=== PATIENT | female | born 1990 | race Caucasian/White ===

== ENCOUNTER 2017-09-19 20:28 | Inpatient (IN) | payer MEDICAID ==
[~2017-09-19] VITALS: Ht 165.1 cm; Wt 110.2 kg
[2017-09-20 00:50] VITALS: BP 107/60
[2017-09-20 08:00] VITALS: BP 103/69
[2017-09-20] MEDS ORDERED: PETROLATUM,WHITE 71 GM JELLY TP PRN (08:00)
[2017-09-20] MEDS ORDERED: MAGNESIUM HYDROXIDE SUSPENSION 30 ML UDCUP PO PRN (08:00)
[2017-09-20] MEDS ORDERED: MAG HYDROX/AL HYDROX/SIMETH ES 30 ML SUSPENSION UDCUP PO PRN (08:00)
[2017-09-20] MEDS ORDERED: DOCUSATE SODIUM 100 MG CAPSULE PO PRN (08:00)
[2017-09-20] MEDS ORDERED: ALBUTEROL SULFATE HFA 90 MCG/PUFF 8 GM INHALER IH PRN (08:00)
[2017-09-20 08:08] LABS: BASOPHILS % (AUTO) 0.5 % (0.0-2.0); EOSINOPHILS % (AUTO) 4.1 % (1.0-6.0); HEMATOCRIT 30.6 % (36-46); HEMOGLOBIN 10.4 g/dL (12.0-16.0); LYMPHOCYTES # (AUTO) 1.6 K/uL (1.0-4.8); LYMPHOCYTES % (AUTO) 25.3 % (22.0-44.0); MEAN CORPUSCULAR HEMOGLOBIN 30.1 pg (26.0-34.0); MEAN CORPUSCULAR VOLUME 89 fL (80-100); MONOCYTES # (AUTO) 0.6 K/uL (0.1-1.0); MONOCYTES % (AUTO) 9.6 % (2.0-9.0); NEUTROPHILS # (AUTO) 3.9 K/uL (1.8-7.7); NEUTROPHILS % (AUTO) 60.5 % (40.0-70.0); PLATELET COUNT (AUTO) 210 K/uL (150-450); RED BLOOD CELL COUNT(AUTO) 3.45 MIL/uL (4.00-5.20); RED CELL DISTRIBUTION WIDTH 13.9 % (11.5-14.5)
[2017-09-20 08:20] LABS: HEMOGLOBIN A1C 4.8 % (4.5-6.2)
[2017-09-20 08:48] LABS: ALANINE AMINOTRANSFERASE 9 U/L (12-78); ALBUMIN 2.1 g/dL (3.4-5.0); ALKALINE PHOSPHATASE 71 U/L (46-116); ANION GAP 10 mmol/L (8-16); ASPARTATE AMINOTRANSFERASE 8 U/L (15-37); BILIRUBIN,TOTAL 0.1 mg/dL (0.1-1.0); CALCIUM, TOTAL 7.9 mg/dL (8.8-10.5); CARBON DIOXIDE 23 mmol/L (22-29); CHLORIDE 105 mmol/L (98-107); CHOL/HDL RATIO 2.8 (3.9-5.7); CHOLESTEROL 190 mg/dL (131-200); CREATININE 0.38 mg/dL (0.60-1.30); FREE T4 (FREE THYROXINE) 0.83 ng/dL (0.76-1.46); GLOMERULAR FILTR. RATE CALC > 60 mL/min (>60); GLUCOSE,RANDOM 84 mg/dL (70-110); HDL CHOLESTEROL 68 mg/dL (40-60); LDL CHOL (CALC.) 97 mg/dL (0-130); POTASSIUM 3.9 mmol/L (3.5-5.1); SODIUM SERUM 138 mmol/L (136-145); THYROID STIMULATING HORMONE 2.25 uIU/mL (0.36-3.74); TRIGLYCERIDES 125 mg/dL (15-150); UREA NITROGEN, BLOOD 7 mg/dL (7-18)
[2017-09-20 08:49] LABS: HCG,QUANTITATIVE 4392 mIU/mL (0-6)
[2017-09-20 09:22] VITALS: BP 103/69
[2017-09-20] MEDS: NICOTINE 14 MG/24 HOUR PATCH TD SCH (13:08)
[2017-09-20 16:19] VITALS: BP 102/64
[2017-09-20] MEDS: FERROUS SULFATE 325 MG EC TABLET PO SCH (17:09)
[2017-09-21 05:44] VITALS: BP 105/56
[2017-09-21] MEDS: FERROUS SULFATE 325 MG EC TABLET PO SCH ×3 (07:04→17:07)
[2017-09-21 08:28] VITALS: BP 107/60
[2017-09-21] MEDS: SERTRALINE HCL 50 MG TABLET PO SCH (10:27)
[2017-09-21] MEDS: NICOTINE 14 MG/24 HOUR PATCH TD SCH (10:30)
[2017-09-21 16:38] VITALS: BP 106/60
[2017-09-21] MEDS: PRENATAL VIT#96/FERROUS FUM/FA TABLET PO SCH (20:57)
[2017-09-22 02:35] VITALS: BP 108/66
[2017-09-22] MEDS: FERROUS SULFATE 325 MG EC TABLET PO SCH ×3 (07:01→16:36)
[2017-09-22 08:48] VITALS: BP 110/69
[2017-09-22] MEDS: SERTRALINE HCL 50 MG TABLET PO SCH (08:50)
[2017-09-22] MEDS: PRENATAL VIT#96/FERROUS FUM/FA TABLET PO SCH ×2 (08:50→16:36)
[2017-09-22 16:00] VITALS: BP 106/62
[2017-09-22 20:11] VITALS: BP 109/85
[2017-09-23] MEDS: FERROUS SULFATE 325 MG EC TABLET PO SCH ×3 (06:51→17:52)
[2017-09-23 07:11] VITALS: BP 96/49
[2017-09-23] MEDS: SERTRALINE HCL 100 MG TABLET PO SCH (09:31)
[2017-09-23] MEDS: PRENATAL VIT#96/FERROUS FUM/FA TABLET PO SCH ×2 (09:32→17:52)
[2017-09-23 10:24] VITALS: BP 103/57
[2017-09-23] MEDS: ACETAMINOPHEN 325 MG TABLET PO PRN (18:51)
[2017-09-23 18:52] VITALS: BP 110/69
[2017-09-24] MEDS: FERROUS SULFATE 325 MG EC TABLET PO SCH ×2 (07:07→12:51)
[2017-09-24] MEDS ORDERED: FERR-89 PO (08:25)
[2017-09-24] MEDS ORDERED: SERT100T12 PO (08:27)
[2017-09-24] MEDS ORDERED: PREN1TAB89 PO (08:28)
[2017-09-24 09:38] VITALS: BP 116/69
[2017-09-24] MEDS: PRENATAL VIT#96/FERROUS FUM/FA TABLET PO SCH (09:58)
[2017-09-24] MEDS: SERTRALINE HCL 100 MG TABLET PO SCH (09:58)
[2017-09-24 11:00] VITALS: BP 126/76
[2017-09-24] MEDS: ACETAMINOPHEN 325 MG TABLET PO PRN (11:00)
[2017-09-24 12:00] VITALS: BP 116/76
== END 2017-09-24 13:51 | disposition home or self-care (01) | DRG 566 ==
LOC: B2S 22:10 → 3EI 09-22 19:09
PROVIDERS: ADMIT Psychiatry & Neurology Psychiatry; ATTEND Psychiatry & Neurology Psychiatry
DX: O99.343 Other mental disorders complicating pregnancy, third trimester (principal); R45.851 Suicidal ideations; F25.0 Schizoaffective disorder, bipolar type; O99.323 Drug use complicating pregnancy, third trimester; R45.850 Homicidal ideations; F41.9 Anxiety disorder, unspecified; F60.3 Borderline personality disorder; F10.10 Alcohol abuse, uncomplicated; F19.10 Other psychoactive substance abuse, uncomplicated; O99.313 Alcohol use complicating pregnancy, third trimester; Z3A.32 32 weeks gestation of pregnancy; Z91.19 Patient's noncompliance with other medical treatment and regimen; Z71.51 Drug abuse counseling and surveillance of drug abuser; Z71.41 Alcohol abuse counseling and surveillance of alcoholic
CPT/HCPCS: 76805; 83036; 84439; 84443